=== PATIENT | female | born 1990 | race Two or more races ===

== ENCOUNTER 2017-04-15 09:31 | Inpatient (IN) | payer OTHER ==
[~2017-04-15] VITALS: Ht 167.6 cm; Wt 84.4 kg
[2017-04-15] MEDS ORDERED: PRENATABS RX TA1 TAB PO (21:28)
[2017-04-15 21:29] VITALS: BP 119/62; Ht 167.6 cm; Wt 84.4 kg
[2017-04-15] MEDS ORDERED: ACETAMINOPHEN500 M1 PO (21:29)
[2017-04-15 21:35] LABS: HEMATOCRIT 35.2 % (36.0-48.0); HEMOGLOBIN 11.7 g/dL (12-16); MCH 28.6 pg (26.0-34.0); MCHC 33.2 g/dL (31.0-37.0); MCV 86.1 fL (80.0-100.0); MEAN PLATELET VOLUME 9.9 fL (7.4-10.4); RBC 4.09 10x6/uL (4.00-5.40); RDW 14.8 % (11.5-14.5); WBC 8.3 10x3/uL (4.8-10.8)
[2017-04-15 23:38] LABS: APPEARANCE CLEAR (CLEAR); BACTERIA NONE SEEN /hpf (NONE SEEN); BILIRUBIN NEGATIVE (NEGATIVE); COLOR YELLOW (YELLOW); EPITHELIAL CELLS RARE /hpf (0-5); GLUCOSE NEGATIVE (NEGATIVE); KETONE NEGATIVE (NEGATIVE); NITRITE NEGATIVE (NEGATIVE); PROTEIN TRACE mg/dL (NEGATIVE); RED CELLS - URINE 0-5 /hpf (0-5); UROBILINOGEN NORMAL (NORMAL); WHITE CELLS - URINE RARE /hpf (0-5)
[2017-04-15 23:43] LABS: UDS - AMPHET NEGATIVE QUAL (NEGATIVE); UDS - BARB NEGATIVE QUAL (NEGATIVE); UDS - BENZO NEGATIVE QUAL (NEGATIVE); UDS - COCAINE NEGATIVE QUAL (NEGATIVE); UDS - OPIATE NEGATIVE QUAL (NEGATIVE); UDS - PCP NEGATIVE QUAL (NEGATIVE); UDS - THC NEGATIVE QUAL (NEGATIVE)
--- NOTE | 2017-04-16 12:31 | NUR ---
PT UP TO VOID WITHOUT DIFFICULTY. STEADY GAIT NOTED. VOIDS 400ML BLOODY TINGED URINE INTO [place] HAT. PERICARE DEMONSTRATED WITH BETADINE AND WARM WATER. PANTIES, AND PADS PROVIDED. CLEAN GOWN PROVIDED. PT AMB TO ROOM 1257 PER SELF. PT AND S.O. ORIENTED TO ROOM. PT TO BED WITHOUT C/O OR FURTHER NEEDS.
--- NOTE | 2017-04-16 13:41 | NUR ---
ROUNDS MADE. PT SITTING UP ON SIDE OF BED. C/O PAIN 08/24 BUT DENIES NEEDS FOR PAIN MEDICATION. FOB REMAINS AT BEDSIDE FOR SUPPORT. PT DENIES ANY NEEDS.
--- NOTE | 2017-04-16 14:22 | NUR ---
ROUNDS MADE. PT LYING ON BACK HOB 45 DEGREES. RATES PAIN 4/10 STILL, REFUSES ICE FOR PERINEUM, DENIES NEEDS FOR PAIN MEDS. WILL CONT TO MONITOR.
--- NOTE | 2017-04-16 15:13 | NUR ---
PT RINGS CL. RN TO BEDSIDE. PT C/O PAIN 10/24 DESCRIBED CRAMPING. TYLENOL #3 X1 TAB GIVEN PER ORDERS. SEE EMAR. PT AT THIS TIME. EDU PT ON BF CAUSING CRAMPING/CTX FEELINGS. PT VERBALIZED UNDERSTANDING. FUNDUS REMAINS FIRM, ML, U/1. SMALL LOCHIA RUBRA NOTED TO PERIPADS, NO CLOTS. PT DENIES CLOTS WHEN VOIDING AND VOIDING WITHOUT DIFFICULTY. WILL CONT TO MONITOR. BED LOW, WHEELS LOCKED, CL IN REACH, SIDE RAILS UP X2.
--- NOTE | 2017-04-16 15:58 | NUR ---
PAIN REASSESSMENT COMPLETE. PT RATES PAIN 0/10 AT THIS TIME. PT DENIES FURTHER NEEDS.
--- NOTE | 2017-04-16 17:51 | NUR ---
TUCKS AND DERMAPLAST TEACHING DONE AT THIS TIME. PT VERBALIZES UNDERSTANDING. RATES PAIN 2/10 AND DENIES FURTHER NEEDS. FOB HOLDING INFANT AT BEDSIDE.
--- NOTE | 2017-04-16 18:26 | NUR ---
ROUNDS MADE. PT RATES PAIN 2/10 AT THIS TIME. PT FINISHED MEAL TRAY. FOB REMAINS AT BEDSIDE FOR SUPPORT. PT DENIES FURTHER NEEDS AT THIS TIME.
[2017-04-16 19:45] VITALS: BP 106/52
--- NOTE | 2017-04-16 19:45 | NUR ---
PT. AWAKE AND ORIENTED. LYING ON BACK WITH HOB AT 45 DEGREES. LYING ON PT.'S RT. SIDE. PT. STATES BABY HAS FINISHED . DENIES ANY PAIN AT THIS TIME. STATES SHE ONLY HAS CRAMPING WHEN BUT IT IS "NOT BAD THEN." BREATH SOUNDS CLEAR AND BOWEL SOUNDS AUDIBLE. FUNDUS FIRM U/1. PT. STATES SHE NEEDING TO VOID AND WOULD GET UP AFTER ASSESSMENT. FOB ON SOFA. PT. ASKED FOR LINENS FOR FOB FOR SOFA. DENIES ANY PAIN IN LOWER EXTREMITIES. DENIES ANY NEEDS.
--- NOTE | 2017-04-16 20:56 | NUR ---
PT. C/O ABD. CRAMPING AFTER . RATES A 6 OF 10 ON PAIN SCALE. PAIN MED GIVEN ORDERED. FOB HOLDING AT PRESENT. SIDE RAILS UP X 2. CALL LIGHT WITHIN REACH.
--- NOTE | 2017-04-16 21:23 | NUR ---
PT. STATES THAT CRAMPING HAS SUBSIDED "SOME". RATES A 5 OF 10 AT THIS TIME. LOOKING ON PHONE AT PRESENT. IN OPEN CRIB AT BEDSIDE. WARM BLANKET GIVEN TO PT. TO PLACE ON ABD.
--- NOTE | 2017-04-16 22:16 | NUR ---
PT. LYING ON LT SIDE WITH EYES CLOSED. OPENS EYES TO THIS NURSE IN ROOM. STATES HER PAIN IS SUBSIDING AND CONTRACTIONS ARE LESS INTENSE. MALE SLEEPING ON SOFA.
--- NOTE | 2017-04-16 23:04 | NUR ---
PT CALLS REQUESTING PAIN MEDICATION. IBUPROFEN 600MG ADMINISTERED AT THIS TIME. SEE E-MAR FOR DOCUMENTATION. GELA SANTOS
--- NOTE | 2017-04-16 23:40 | NUR ---
HOLDING INFANT AT PRESENT. REPORTS ABD. CRAMPING IS SUBSIDING AND RATES A 4 OF 10 ON PAIN SCALE. STATES THAT WARM BLANKET TO ABD. REALLY HELPED AND REQUESTED ANOTHER. SAME GIVEN. FOB ASSISTING PT. WITH INFANT.
--- NOTE | 2017-04-17 01:00 | NUR ---
PT. AWAKE AT PRESENT. STATES HER ABD. CRAMPING REMAINS AT A 4 OF 10 ON PAIN SCALE. INQUIRING WHAT FOOD IS AVAILABLE FOR HER. INFORMED OF NOURISHMENTS OPTIONS. FOB SLEEPING ON SOFA.
--- NOTE | 2017-04-17 01:10 | NUR ---
SANDWICH TRAY, PUDDING AND L[place]ON [place]I SOFA PROVIDED TO PT. PT. WITHOUT FURTHER REQUEST AT THIS TIME. ENCOURAGED PT. NOT TO PUT OFF VOIDING WHENEVER SHE FEELS BLADDER IS FULL. PT. STATES UNDERSTANDING. RETURNED TO [facility] PER NURSERY STAFF.
--- NOTE | 2017-04-17 03:35 | NUR ---
LYING ON BACK WITH EYES CLOSED. RESPIRATIONS REGULAR. TV REMAINS ON. FOB SLEEPING ON SOFA.
[2017-04-17 05:13] LABS: RAPID PLASMA REAGIN Non Reactive (Non Reactive)
--- NOTE | 2017-04-17 05:30 | NUR ---
PT MEDICATED FOR PAIN 08/24. SEE EMAR FOR MEDICATION ADMINISTRATION.
--- NOTE | 2017-04-17 05:55 | NUR ---
PT.UP TO SHOWER. TOWELS PROVIDED. INFANT RETURNED TO [facility] PER NURSERY STAFF. FOB REMAINS IN ROOM.
--- NOTE | 2017-04-17 06:15 | NUR ---
PT. REMAINS IN SHOWER. FOB ON SOFA AND AWAKE.
--- NOTE | 2017-04-17 06:28 | NUR ---
BACK TO BED FROM SHOWER. PT. RELATES THAT SHOWER MADE HER "FEEL MUCH BETTER." DENIES ANY PAIN AT THIS TIME. ASKED IF DOCTOR SAID WHEN SHE COULD GO HOME. INFORMED PT. TO MENTION TO MD WHEN ROUNDING THAT SHE DESIRES TO GO HOME. ALSO INFORMED PT. THAT WOULD ALSO HAVE TO HAVE A DISCHARGE BY THE PEDI. PT. STATES UNDERSTANDING TO ALL.
--- NOTE | 2017-04-17 07:24 | OP ---
PATIENT NAME: ARELIS EDWARDS MEDICAL RECORD: [id number] :86 LOCATION:[id number] ADMISSION DATE:04/15/17 SURGEON: JAMES PEACOCK MD DATE OF OPERATION: 04/16/2017 DELIVERY NOTE PREDELIVERY DIAGNOSIS: at term. POSTDELIVERY DIAGNOSIS: Mother delivered at term. PROCEDURE: Induction of labor with vaginal delivery. SURGEON: James Peacock MD. ANESTHETIC: None. FINDINGS: Viable female infant in DAINA presentation, Apgars were 9 and 9, weight 3005 grams. Placenta spontaneous and intact. First-degree laceration without repair. EBL: 300 cc. DISPOSITION: Mother and recovered in the room. TRANSINT:[id number] Voice Confirmation ID: [id number] DOCUMENT ID: [id number] JAMES PEACOCK MD at 0724 CC: [id number] DICTATION DATE: 04/16/17 1108 ROTARY CUTTER: 04/16/17 1205 ADM IN [facility] [address] [place] [address]
--- NOTE | 2017-04-17 07:30 | NUR ---
dr cordero here to see pt. new orders received.
[2017-04-17 07:55] VITALS: BP 99/49
--- NOTE | 2017-04-17 08:00 | NUR ---
assessment done. pt sitting up in bed. infant at bedside.family at bedside. pt denies any needs. no requests. scant lochia noted on pad. abd soft- fundus firm.
[2017-04-17] MEDS ORDERED: IBUPROFEN800 MG PO (09:45)
--- NOTE | 2017-04-17 10:20 | NUR ---
pt states that she wants to get home as soon as possible. states that she has had flu shot this season. saline lock removed with cath tip intact- pressure held and bandaide applied.
--- NOTE | 2017-04-17 10:45 | NUR ---
DISCHARGE INST VERBAL AND WRITTEN GIVEN. PRESCRIPTION X1 GIVEN ALONG WITH PT MED REC AND DRUG DATA SHEETS. VAG DEL DISCHARGE INST GIVEN. PT CARE SUMMARY GIVEN. PT DENIES QUESTIONS.
--- NOTE | 2017-04-17 12:03 | NUR ---
discharged to home with infant. to auto via w/c.
== END 2017-04-17 12:17 | disposition home or self-care (01) | DRG 775 ==
LOC: D.LD 09:31
PROVIDERS: ADMIT Obstetrics & Gynecology
PROC: 10E0XZZ Delivery of Products of Conception, External Approach (ICD-10-PCS; principal; 2017-04-16)
PROC: 3E0P7VZ Introduction of Hormone into Female Reproductive, Via Natural or Artificial Opening (ICD-10-PCS; 2017-04-16)
PROC: 3E033VJ Introduction of Other Hormone into Peripheral Vein, Percutaneous Approach (ICD-10-PCS; 2017-04-16)
PROC: 10907ZC Drainage of Amniotic Fluid, Therapeutic from Products of Conception, Via Natural or Artificial Opening (ICD-10-PCS; 2017-04-16)
DX: O77.0 Labor and delivery complicated by meconium in amniotic fluid (principal); O70.0 First degree perineal laceration during delivery; Z3A.39 39 weeks gestation of pregnancy; Z37.0 Single live birth